=== PATIENT | male | born 1940 | race Caucasian/White ===

== ENCOUNTER 2022-05-07 10:41 | Inpatient (IN) | payer OTHER, BC ==
[2022-05-07] MEDS ORDERED: SODIUM CHLORIDE 0.9% 500 ML INFUS.BAG IV ONE ×2 (12:14→20:53)
[2022-05-07 12:28] LABS: VENOUS BASE EXCESS -1.3 mmol/L (-2-2); VENOUS O2 SATURATION 85.7 % (70-80); VENOUS PH 7.373 (7.310-7.410)
[2022-05-07 12:33] LABS: HEMOGLOBIN 12.1 GM/dL (11.7-16.9); MCH 31.8 pg (25.7-33.7); MCHC 33.7 g/dl (32.0-35.9); MEAN CELL VOLUME 94.6 fl (80-96); MEAN PLT VOLUME 9.5 fl (7.5-11.1); PLATELET COUNT 128 10^3/uL (134-434); RDW 14.4 % (11.9-15.9); WHITE BLOOD COUNT 8.2 K/mm3 (4.0-10.0)
[2022-05-07 12:40] LABS: INR 1.12 (0.83-1.09); PROTHROMBIN TIME (PATIENT) 12.9 SEC (9.7-13.0)
[2022-05-07 12:43] LABS: ACTIVATED PTT 29.3 SECONDS (25.2-36.5)
[2022-05-07 12:54] LABS: BLOOD UREA NITROGEN 52.6 mg/dL (7-18); CALCIUM 8.6 mg/dL (8.5-10.1)
[2022-05-07 12:59] LABS: BILIRUBIN,TOTAL 6.3 mg/dL (0.2-1); TOT PROT 5.9 g/dl (6.4-8.2)
[2022-05-07 14:53] LABS: EPI CELLS 21 /uL (0-25.1); HYALINE CASTS 3 /uL (0-3.1); PH,URINE 5.5 (5.0-8.0); URINE APPEARANCE CLOUDY; URINE BACTERIA 1 /uL (0-1359); URINE BILIRUBIN 2+ (NEGATIVE); URINE COLOR DK YELLOW; URINE GLUCOSE (UA) NEGATIVE (NEGATIVE); URINE KETONE NEGATIVE (NEGATIVE); URINE LEUK ESTERASE NEGATIVE (NEGATIVE); URINE NITRITE NEGATIVE (NEGATIVE); URINE PROTEIN 3+ (NEGATIVE); URINE WBC 54 /uL (0-25.8)
[2022-05-07 14:57] LABS: YEAST NEGATIVE (NEGATIVE)
[2022-05-07 15:04] LABS: ANISOCYTOSIS 0; MACROCYTOSIS 0
[2022-05-07] MEDS ORDERED: PIPERACILLIN/TAZOB 4.5 GM 4.5 GM in DEXTROSE 5%-WATER 100 ML IVPB ONE (19:15)
[2022-05-07] MEDS ORDERED: PHYTONADIONE 10 MG/1 ML AMP IVPB ONE (19:52)
[2022-05-07] MEDS ORDERED: PIPERACILLIN/TAZOB 4.5 GM 4.5 GM/100 ML BAG IVPB ONE (21:00)
[2022-05-07] MEDS ORDERED: PHYTONADIONE 10 MG/1 ML AMP ONE (21:00)
[2022-05-07] MEDS ORDERED: LACTATED RINGERS SOLUTION 1,000 ML/1,000 ML INFUS.BAG IV SCH ×2 (22:30→22:40)
[2022-05-07] MEDS ORDERED: LACTATED RINGERS SOLUTION 1000 ML INFUS.BAG IV ONE ×2 (22:49→23:00)
[2022-05-07] MEDS ORDERED: ACETAMINOPHEN INJECTION 100 ML IVPB ONE (23:14)
[2022-05-07 23:19] LABS: BILIRUBIN,DIRECT 4.1 mg/dL (0.0-0.2)
[2022-05-07] MEDS ORDERED: ACETAMINOPHEN 1000 MG/100 ML BAG IVPB PRN (23:23)
[2022-05-08] MEDS ORDERED: PIPERACILLIN/TAZOB 2.25 GM 2.25 GM/50 ML BAG IVPB ONE (02:47)
[2022-05-08] MEDS ORDERED: PIPERACILLIN/TAZOB 2.25 GM 2.25 GM in DEXTROSE 5%-WATER - 50 ML IVPB SCH (03:00)
[2022-05-08] MEDS ORDERED: SODIUM CHLORIDE 1,000 ML IV SCH ×2 (03:15→04:59)
[2022-05-08 03:29] LABS: ARTERIAL BLD GAS O2 SATURATION 97.4 % (95-98); ARTERIAL BLOOD GAS BASE EXCESS -4.4 mmol/L (-2-2); ARTERIAL BLOOD GAS pH 7.332 (7.350-7.450)
[2022-05-08 03:32] LABS: ALLENS TEST POSITIVE; VENT MODE ST; VENT RATE 2
[2022-05-08 03:38] LABS: EPI CELLS >36 /uL (0-25.1); HYALINE CASTS 9 /uL (0-3.1); PH,URINE 5.5 (5.0-8.0); URINE APPEARANCE CLOUDY; URINE BACTERIA 14 /uL (0-1359); URINE BILIRUBIN 2+ (NEGATIVE); URINE COLOR DK YELLOW; URINE GLUCOSE (UA) NEGATIVE (NEGATIVE); URINE KETONE NEGATIVE (NEGATIVE); URINE LEUK ESTERASE NEGATIVE (NEGATIVE); URINE NITRITE NEGATIVE (NEGATIVE); URINE PROTEIN 2+ (NEGATIVE); URINE RBC 283 /uL (0-23.9)
[2022-05-08] MEDS ORDERED: ACETAMINOPHEN 1000 MG/100 ML BAG IVPB PRN (04:59)
[2022-05-08] MEDS: NOREPINEPHRINE BITARTRATE/D5W 8 MG/250 ML BAG IVPB SCH (06:49)
[2022-05-08] MEDS: INSULIN SLIDING SCALE (NOVOLOG) 1 VIAL SQ SCH ×4 (06:49→21:57)
[2022-05-08] MEDS ORDERED: INSULIN SLIDING SCALE (NOVOLOG) 1 VIAL SQ SCH (07:00)
[2022-05-08] MEDS ORDERED: LEVOTHYROXINE NA 25 MCG TABLET (FP) PO SCH ×2 (07:00)
[2022-05-08 07:21] LABS: URINE WBC 100.1 /uL (0-25.8)
[2022-05-08 07:35] LABS: BASO % 0.1 % (0-2.0); EOS % 0.1 % (0-4.5); HEMATOCRIT 36.4 % (35.4-49); LYMPH % 5.8 % (8-40); MCH 31.4 pg (25.7-33.7); MEAN CELL VOLUME 95.1 fl (80-96); MEAN PLT VOLUME 8.9 fl (7.5-11.1); MONO % 10.3 % (3.8-10.2); NEUT % 83.7 % (42.8-82.8); PLATELET COUNT 97 10^3/uL (134-434); RBC 3.83 M/mm3 (4.00-5.60); RDW 15.2 % (11.9-15.9); WHITE BLOOD COUNT 8.2 K/mm3 (4.0-10.0)
[2022-05-08 07:44] LABS: INR 1.03 (0.83-1.09); PROTHROMBIN TIME (PATIENT) 11.8 SEC (9.7-13.0)
[2022-05-08 07:47] LABS: ACTIVATED PTT 29.7 SECONDS (25.2-36.5)
[2022-05-08 07:53] LABS: MAGNESIUM 1.3 mg/dL (1.8-2.4)
[2022-05-08 07:54] LABS: CALCIUM 7.7 mg/dL (8.5-10.1)
[2022-05-08 07:55] LABS: ALBUMIN 2.6 g/dl (3.4-5.0)
[2022-05-08 07:56] LABS: CREATININE 3.3 mg/dL (0.55-1.3)
[2022-05-08 07:57] LABS: BILIRUBIN,DIRECT 5.7 mg/dL (0.0-0.2)
[2022-05-08 07:58] LABS: PHOSPHOROUS 3.9 mg/dL (2.5-4.9); TOT PROT 5.4 g/dl (6.4-8.2)
[2022-05-08 08:00] LABS: BILIRUBIN,TOTAL 6.8 mg/dL (0.2-1)
[2022-05-08] MEDS ORDERED: TAMSULOSIN HCL 0.4 MG CAP PO SCH (08:30)
[2022-05-08] MEDS ORDERED: MAGNESIUM SULF 50% (8.12 MEQ/2 ML-1 GM VIAL) IVPB ONE (09:00)
[2022-05-08] MEDS: PIPERACILLIN/TAZOB 2.25 GM 2.25 GM in DEXTROSE 5%-WATER - 50 ML IVPB SCH ×5 (09:00→21:36)
[2022-05-08] MEDS ORDERED: LACTATED RINGERS SOLUTION 1000 ML INFUS.BAG IV ONE ×3 (09:00→16:52)
[2022-05-08] MEDS: LEVOTHYROXINE SODIUM 100 MCG 5 ML VIAL IVPUSH SCH (10:58)
[2022-05-08] MEDS: MUPIROCIN 2% TOPICAL OINTMENT FOR DECOLONIZATION NS SCH ×2 (10:58→21:57)
[2022-05-08] MEDS ORDERED: LIDOCAINE HCL 2% 100 MG/5 ML DISP.SYRIN ONE (11:32)
[2022-05-08] MEDS ORDERED: VASOPRESSIN 20 UNITS/ML VIAL IV ONE ×3 (11:34→18:09)
[2022-05-08] MEDS ORDERED: CALCIUM CHLORIDE 1 GM/10 ML *DISP.SYRIN ONE (12:04)
[2022-05-08] MEDS ORDERED: LACTATED RINGERS SOLUTION 1,000 ML/1,000 ML INFUS.BAG IV SCH (14:30)
[2022-05-08] MEDS: DEXTROSE 5%-LACTATED RINGERS 1,000 ML IV SCH ×2 (14:49→21:36)
[2022-05-08] MEDS: DEXMEDETOMIDINE PREMIX 400 MCG/100 ML BAG IVPB SCH (14:57)
[2022-05-08 16:27] LABS: ARTERIAL BLD GAS O2 SATURATION 93.5 % (95-98); ARTERIAL BLOOD GAS BASE EXCESS -9.7 mmol/L (-2-2); ARTERIAL BLOOD GAS PO2 89.1 mmHg (80-100)
[2022-05-08 16:29] LABS: VENT MODE V-AC; VENT RATE 12
[2022-05-08 16:30] LABS: ARTERIAL BLOOD GAS pH 7.122 (7.350-7.450)
[2022-05-08] MEDS ORDERED: FENTANYL CITRATE/PF 50 MCG/ML VIAL IVPUSH ONE ×2 (17:00→19:32)
[2022-05-08 17:37] LABS: BASO % 0.1 % (0-2.0); EOS % 0.4 % (0-4.5); HEMATOCRIT 34.6 % (35.4-49); HEMOGLOBIN 11.3 GM/dL (11.7-16.9); LYMPH % 3.5 % (8-40); MCH 31.5 pg (25.7-33.7); MCHC 32.6 g/dl (32.0-35.9); MEAN CELL VOLUME 96.4 fl (80-96); MEAN PLT VOLUME 9.7 fl (7.5-11.1); MONO % 7.8 % (3.8-10.2); NEUT % 88.2 % (42.8-82.8); PLATELET COUNT 95 10^3/uL (134-434); RBC 3.59 M/mm3 (4.00-5.60); RDW 14.9 % (11.9-15.9)
[2022-05-08 17:53] LABS: INR 0.96 (0.83-1.09)
[2022-05-08 17:56] LABS: ACTIVATED PTT 24.4 SECONDS (25.2-36.5)
[2022-05-08 18:02] LABS: CALCIUM 8.3 mg/dL (8.5-10.1)
[2022-05-08 18:03] LABS: BLOOD UREA NITROGEN 68.2 mg/dL (7-18)
[2022-05-08 18:06] LABS: CREATININE 3.5 mg/dL (0.55-1.3)
[2022-05-08 18:07] LABS: TOT PROT 5.1 g/dl (6.4-8.2)
[2022-05-08 18:09] LABS: BILIRUBIN,TOTAL 5.6 mg/dL (0.2-1)
[2022-05-08] MEDS ORDERED: NOREPINEPHRINE BITARTRATE 4 MG/4 ML ML IV ONE (18:09)
[2022-05-08 18:10] LABS: ALBUMIN 2.3 g/dl (3.4-5.0)
[2022-05-08] MEDS: VASOPRESSIN 40 UNITS/100 ML BAG IV SCH (18:30)
[2022-05-08 18:38] LABS: ARTERIAL BLD GAS O2 SATURATION 95.8 % (95-98); ARTERIAL BLOOD GAS BASE EXCESS -8.5 mmol/L (-2-2); ARTERIAL BLOOD GAS PO2 90.9 mmHg (80-100); ARTERIAL BLOOD GAS pH 7.259 (7.350-7.450)
[2022-05-08 18:39] LABS: VENT MODE V-AC
[2022-05-08 18:40] LABS: VENT RATE 16
[2022-05-08] MEDS ORDERED: MIDAZOLAM HCL 2 MG/2 ML SINGLE DOSE VIAL IVPUSH ONE (19:31)
[2022-05-08] MEDS: CHLORHEXIDINE GLUCONATE 4% CLEANSER FOR DECOLONIZATION TP SCH (21:57)
[2022-05-09] MEDS: PIPERACILLIN/TAZOB 2.25 GM 2.25 GM in DEXTROSE 5%-WATER - 50 ML IVPB SCH ×4 (03:27→21:36)
[2022-05-09] MEDS: INSULIN SLIDING SCALE (NOVOLOG) 1 VIAL SQ SCH ×4 (06:24→21:37)
[2022-05-09] MEDS: LEVOTHYROXINE SODIUM 100 MCG 5 ML VIAL IVPUSH SCH (06:35)
[2022-05-09 08:17] LABS: EOS % 0.4 % (0-4.5); HEMATOCRIT 34.9 % (35.4-49); HEMOGLOBIN 11.7 GM/dL (11.7-16.9); LYMPH % 5.3 % (8-40); MCH 31.7 pg (25.7-33.7); MCHC 33.5 g/dl (32.0-35.9); MEAN CELL VOLUME 94.6 fl (80-96); MEAN PLT VOLUME 9.7 fl (7.5-11.1); MONO % 8.3 % (3.8-10.2); PLATELET COUNT 89 10^3/uL (134-434); RBC 3.69 M/mm3 (4.00-5.60); RDW 14.8 % (11.9-15.9); WHITE BLOOD COUNT 5.9 K/mm3 (4.0-10.0)
[2022-05-09 08:18] LABS: CALCIUM 8.2 mg/dL (8.5-10.1)
[2022-05-09 08:19] LABS: ALBUMIN 2.2 g/dl (3.4-5.0); BLOOD UREA NITROGEN 73.3 mg/dL (7-18)
[2022-05-09 08:21] LABS: BILIRUBIN,DIRECT 3.2 mg/dL (0.0-0.2); CREATININE 3.4 mg/dL (0.55-1.3)
[2022-05-09 08:22] LABS: PHOSPHOROUS 4.4 mg/dL (2.5-4.9)
[2022-05-09 08:23] LABS: BILIRUBIN,TOTAL 3.8 mg/dL (0.2-1); TOT PROT 5.2 g/dl (6.4-8.2)
[2022-05-09] MEDS: PANTOPRAZOLE SODIUM 40 MG VIAL IVPUSH SCH (09:31)
[2022-05-09] MEDS: MUPIROCIN 2% TOPICAL OINTMENT FOR DECOLONIZATION NS SCH ×2 (09:31→21:37)
[2022-05-09] MEDS: DEXTROSE 5%-LACTATED RINGERS 1,000 ML IV SCH ×2 (18:58→23:14)
[2022-05-09] MEDS: VASOPRESSIN 40 UNITS/100 ML BAG IV SCH (18:58)
[2022-05-09] MEDS: DEXMEDETOMIDINE PREMIX 400 MCG/100 ML BAG IVPB SCH (21:36)
[2022-05-09] MEDS: NOREPINEPHRINE BITARTRATE/D5W 8 MG/250 ML BAG IVPB SCH (21:36)
[2022-05-09] MEDS: CHLORHEXIDINE GLUCONATE 4% CLEANSER FOR DECOLONIZATION TP SCH (21:37)
[2022-05-10] MEDS: PIPERACILLIN/TAZOB 2.25 GM 2.25 GM in DEXTROSE 5%-WATER - 50 ML IVPB SCH ×4 (02:03→21:54)
[2022-05-10] MEDS: LEVOTHYROXINE SODIUM 100 MCG 5 ML VIAL IVPUSH SCH (05:59)
[2022-05-10] MEDS: INSULIN SLIDING SCALE (NOVOLOG) 1 VIAL SQ SCH ×4 (06:00→21:59)
[2022-05-10 06:09] LABS: ARTERIAL BLD GAS O2 SATURATION 96.1 % (95-98); ARTERIAL BLOOD GAS BASE EXCESS -3.6 mmol/L (-2-2); ARTERIAL BLOOD GAS PO2 87.1 mmHg (80-100); ARTERIAL BLOOD GAS pH 7.341 (7.350-7.450)
[2022-05-10 06:12] LABS: ALLENS TEST POSITIVE
[2022-05-10 08:06] LABS: BASO % 0.2 % (0-2.0); EOS % 0.7 % (0-4.5); HEMATOCRIT 36.5 % (35.4-49); HEMOGLOBIN 12.1 GM/dL (11.7-16.9); LYMPH % 6.8 % (8-40); MCH 31.5 pg (25.7-33.7); MCHC 33.1 g/dl (32.0-35.9); MEAN CELL VOLUME 95.3 fl (80-96); MEAN PLT VOLUME 9.6 fl (7.5-11.1); NEUT % 80.3 % (42.8-82.8); PLATELET COUNT 101 10^3/uL (134-434); RBC 3.83 M/mm3 (4.00-5.60); RDW 14.9 % (11.9-15.9); WHITE BLOOD COUNT 8.1 K/mm3 (4.0-10.0)
[2022-05-10 08:20] LABS: INR 0.97 (0.83-1.09); PROTHROMBIN TIME (PATIENT) 11.1 SEC (9.7-13.0)
[2022-05-10 08:23] LABS: ACTIVATED PTT 30.9 SECONDS (25.2-36.5)
[2022-05-10 08:31] LABS: ALBUMIN 2.1 g/dl (3.4-5.0); CREATININE 3.4 mg/dL (0.55-1.3)
[2022-05-10 08:33] LABS: BILIRUBIN,TOTAL 2.2 mg/dL (0.2-1)
[2022-05-10 08:34] LABS: BILIRUBIN,DIRECT 1.8 mg/dL (0.0-0.2)
[2022-05-10 08:36] LABS: MAGNESIUM 1.9 mg/dL (1.8-2.4)
[2022-05-10 08:39] LABS: PHOSPHOROUS 3.9 mg/dL (2.5-4.9)
[2022-05-10] MEDS: MUPIROCIN 2% TOPICAL OINTMENT FOR DECOLONIZATION NS SCH ×2 (09:10→21:55)
[2022-05-10] MEDS: PANTOPRAZOLE SODIUM 40 MG VIAL IVPUSH SCH (09:11)
[2022-05-10] MEDS: POLYETHYLENE GLYCOL (HEALTHYLAX) 3350 17 GM PACKET PO SCH ×2 (12:14→21:55)
[2022-05-10] MEDS: URSODIOL 300 MG CAPSULE PO SCH ×2 (12:14→21:55)
[2022-05-10] MEDS: DEXTROSE 5%-LACTATED RINGERS 1,000 ML IV SCH (15:05)
[2022-05-10] MEDS: NOREPINEPHRINE BITARTRATE/D5W 8 MG/250 ML BAG IVPB SCH (15:05)
[2022-05-10] MEDS: DEXMEDETOMIDINE PREMIX 400 MCG/100 ML BAG IVPB SCH (15:06)
[2022-05-10] MEDS: LACTATED RINGERS SOLUTION 1,000 ML/1,000 ML INFUS.BAG IV SCH (18:26)
[2022-05-10] MEDS: VASOPRESSIN 40 UNITS/100 ML BAG IV SCH (18:27)
[2022-05-10] MEDS: CHLORHEXIDINE GLUCONATE 4% CLEANSER FOR DECOLONIZATION TP SCH (21:56)
[2022-05-11] MEDS: PIPERACILLIN/TAZOB 2.25 GM 2.25 GM in DEXTROSE 5%-WATER - 50 ML IVPB SCH ×4 (02:24→22:04)
[2022-05-11] MEDS: LACTATED RINGERS SOLUTION 1,000 ML/1,000 ML INFUS.BAG IV SCH (05:49)
[2022-05-11] MEDS: INSULIN SLIDING SCALE (NOVOLOG) 1 VIAL SQ SCH ×4 (06:15→22:47)
[2022-05-11] MEDS: LEVOTHYROXINE SODIUM 100 MCG 5 ML VIAL IVPUSH SCH (06:46)
[2022-05-11] MEDS: NOREPINEPHRINE BITARTRATE/D5W 8 MG/250 ML BAG IVPB SCH (06:47)
[2022-05-11 08:06] LABS: INR 1.03 (0.83-1.09); PROTHROMBIN TIME (PATIENT) 11.8 SEC (9.7-13.0)
[2022-05-11 08:08] LABS: ACTIVATED PTT 32.7 SECONDS (25.2-36.5)
[2022-05-11 08:11] LABS: BASO % 0.2 % (0-2.0); EOS % 1.6 % (0-4.5); HEMATOCRIT 37.8 % (35.4-49); HEMOGLOBIN 12.7 GM/dL (11.7-16.9); LYMPH % 9.7 % (8-40); MCHC 33.5 g/dl (32.0-35.9); MEAN CELL VOLUME 95.6 fl (80-96); MEAN PLT VOLUME 9.2 fl (7.5-11.1); MONO % 10.5 % (3.8-10.2); PLATELET COUNT 106 10^3/uL (134-434); RBC 3.96 M/mm3 (4.00-5.60); RDW 15.2 % (11.9-15.9); WHITE BLOOD COUNT 6.9 K/mm3 (4.0-10.0)
[2022-05-11 08:28] LABS: CREATININE 2.7 mg/dL (0.55-1.3)
[2022-05-11 08:29] LABS: BLOOD UREA NITROGEN 47.5 mg/dL (7-18)
[2022-05-11 08:30] LABS: BILIRUBIN,TOTAL 1.9 mg/dL (0.2-1); CALCIUM 8.5 mg/dL (8.5-10.1); MAGNESIUM 1.8 mg/dL (1.8-2.4); TOT PROT 5.1 g/dl (6.4-8.2)
[2022-05-11 08:31] LABS: BILIRUBIN,DIRECT 1.3 mg/dL (0.0-0.2)
[2022-05-11 08:34] LABS: PHOSPHOROUS 3.6 mg/dL (2.5-4.9)
[2022-05-11] MEDS: URSODIOL 300 MG CAPSULE PO SCH ×2 (09:44→22:33)
[2022-05-11] MEDS: MUPIROCIN 2% TOPICAL OINTMENT FOR DECOLONIZATION NS SCH (09:45)
[2022-05-11] MEDS: PANTOPRAZOLE SODIUM 40 MG VIAL IVPUSH SCH (09:45)
[2022-05-11] MEDS: POLYETHYLENE GLYCOL (HEALTHYLAX) 3350 17 GM PACKET PO SCH ×2 (09:45→22:18)
[2022-05-11] MEDS ORDERED: PIPERACILLIN/TAZOBACTAM 2.25 GM VIAL IVPB ONE (20:47)
[2022-05-12] MEDS: PIPERACILLIN/TAZOB 2.25 GM 2.25 GM in DEXTROSE 5%-WATER - 50 ML IVPB SCH ×4 (04:23→21:57)
[2022-05-12] MEDS: LEVOTHYROXINE NA 25 MCG TABLET (FP) PO SCH (06:50)
[2022-05-12] MEDS ORDERED: LEVOTHYROXINE NA 25 MCG TABLET (FP) PO SCH (07:00)
[2022-05-12] MEDS: INSULIN SLIDING SCALE (NOVOLOG) 1 VIAL SQ SCH ×4 (07:34→22:21)
[2022-05-12] MEDS: PANTOPRAZOLE 40 MG TABLET PO SCH (09:15)
[2022-05-12] MEDS: URSODIOL 300 MG CAPSULE PO SCH ×2 (09:15→21:58)
[2022-05-12] MEDS: POLYETHYLENE GLYCOL (HEALTHYLAX) 3350 17 GM PACKET PO SCH ×2 (09:16→21:59)
[2022-05-12 09:57] LABS: BASO % 0.4 % (0-2.0); EOS % 1.8 % (0-4.5); HEMOGLOBIN 12.6 GM/dL (11.7-16.9); LYMPH % 10.4 % (8-40); MCH 31.1 pg (25.7-33.7); MCHC 32.4 g/dl (32.0-35.9); MEAN CELL VOLUME 96.1 fl (80-96); MEAN PLT VOLUME 9.1 fl (7.5-11.1); MONO % 8.5 % (3.8-10.2); NEUT % 78.9 % (42.8-82.8); PLATELET COUNT 154 10^3/uL (134-434); RBC 4.06 M/mm3 (4.00-5.60); RDW 15.6 % (11.9-15.9); WHITE BLOOD COUNT 8.1 K/mm3 (4.0-10.0)
[2022-05-12 10:16] LABS: ALBUMIN 2.3 g/dl (3.4-5.0)
[2022-05-12 10:20] LABS: BILIRUBIN,DIRECT 1.1 mg/dL (0.0-0.2); CALCIUM 9.2 mg/dL (8.5-10.1)
[2022-05-12 10:21] LABS: BLOOD UREA NITROGEN 38.6 mg/dL (7-18); MAGNESIUM 1.6 mg/dL (1.8-2.4)
[2022-05-12 10:22] LABS: BILIRUBIN,TOTAL 2.1 mg/dL (0.2-1); TOT PROT 5.6 g/dl (6.4-8.2)
[2022-05-12 10:24] LABS: PHOSPHOROUS 2.3 mg/dL (2.5-4.9)
[2022-05-12 10:25] LABS: CREATININE 1.9 mg/dL (0.55-1.3)
[2022-05-12] MEDS ORDERED: SODIUM CHLORIDE 0.45% 1,000 ML IV SCH (14:45)
[2022-05-13] MEDS: LEVOTHYROXINE NA 25 MCG TABLET (FP) PO SCH (06:08)
[2022-05-13] MEDS: INSULIN SLIDING SCALE (NOVOLOG) 1 VIAL SQ SCH ×4 (06:18→21:36)
[2022-05-13] MEDS: PIPERACILLIN/TAZOB 2.25 GM 2.25 GM in DEXTROSE 5%-WATER - 50 ML IVPB SCH ×4 (06:20→21:35)
[2022-05-13 08:16] LABS: ALBUMIN 2.7 g/dl (3.4-5.0); BLOOD UREA NITROGEN 29.8 mg/dL (7-18); CALCIUM 9.2 mg/dL (8.5-10.1); MAGNESIUM 1.3 mg/dL (1.8-2.4)
[2022-05-13 08:18] LABS: PHOSPHOROUS 1.2 mg/dL (2.5-4.9)
[2022-05-13 08:19] LABS: CREATININE 1.7 mg/dL (0.55-1.3)
[2022-05-13 08:20] LABS: BILIRUBIN,TOTAL 2.4 mg/dL (0.2-1); TOT PROT 6.3 g/dl (6.4-8.2)
[2022-05-13 08:35] LABS: EOS % 3.3 % (0-4.5); HEMOGLOBIN 12.9 GM/dL (11.7-16.9); LYMPH % 11.4 % (8-40); MCH 31.5 pg (25.7-33.7); MCHC 33.1 g/dl (32.0-35.9); MEAN CELL VOLUME 95.4 fl (80-96); MEAN PLT VOLUME 8.8 fl (7.5-11.1); MONO % 7.3 % (3.8-10.2); PLATELET COUNT 179 10^3/uL (134-434); RBC 4.08 M/mm3 (4.00-5.60); RDW 15.3 % (11.9-15.9); WHITE BLOOD COUNT 9.7 K/mm3 (4.0-10.0)
[2022-05-13] MEDS: PANTOPRAZOLE 40 MG TABLET PO SCH (09:43)
[2022-05-13] MEDS: URSODIOL 300 MG CAPSULE PO SCH ×2 (09:43→21:35)
[2022-05-13] MEDS: POLYETHYLENE GLYCOL (HEALTHYLAX) 3350 17 GM PACKET PO SCH ×3 (09:43→21:36)
[2022-05-13 09:55] LABS: N-TERMINAL BNP 4802.8 pg/ml (5-450)
[2022-05-13] MEDS: TAMSULOSIN HCL 0.4 MG CAP PO SCH (11:25)
[2022-05-13] MEDS ORDERED: MAGNESIUM SULFATE IN WATER 2 GM/50 ML IVPB IVPB ONE (11:30)
[2022-05-13] MEDS ORDERED: POTASSIUM CHLORIDE ORAL LIQUID 20 MEQ/15 ML PO ONE (11:30)
[2022-05-13] MEDS ORDERED: NAPH,MB-DB/K PH,MBDB POWDER PACKET PO ONE (11:31)
[2022-05-13] MEDS ORDERED: FUROSEMIDE 40 MG/4 ML INJECTABLE VIAL IVPUSH ONE (12:30)
[2022-05-14] MEDS: PIPERACILLIN/TAZOB 2.25 GM 2.25 GM in DEXTROSE 5%-WATER - 50 ML IVPB SCH ×4 (02:30→21:10)
[2022-05-14] MEDS: INSULIN SLIDING SCALE (NOVOLOG) 1 VIAL SQ SCH ×4 (06:30→21:16)
[2022-05-14] MEDS: LEVOTHYROXINE NA 25 MCG TABLET (FP) PO SCH (06:30)
[2022-05-14 08:16] LABS: BASO % 0.6 % (0-2.0); EOS % 3.1 % (0-4.5); HEMATOCRIT 38.6 % (35.4-49); HEMOGLOBIN 12.7 GM/dL (11.7-16.9); LYMPH % 13.2 % (8-40); MCH 31.5 pg (25.7-33.7); MCHC 32.8 g/dl (32.0-35.9); MEAN PLT VOLUME 8.8 fl (7.5-11.1); MONO % 7.6 % (3.8-10.2); NEUT % 75.5 % (42.8-82.8); PLATELET COUNT 203 10^3/uL (134-434); RBC 4.02 M/mm3 (4.00-5.60); RDW 15.2 % (11.9-15.9); WHITE BLOOD COUNT 9.5 K/mm3 (4.0-10.0)
[2022-05-14 08:39] LABS: ALBUMIN 2.9 g/dl (3.4-5.0); BLOOD UREA NITROGEN 23.2 mg/dL (7-18); CREATININE 1.5 mg/dL (0.55-1.3); PHOSPHOROUS 2.2 mg/dL (2.5-4.9)
[2022-05-14 08:40] LABS: BILIRUBIN,TOTAL 2.5 mg/dL (0.2-1)
[2022-05-14 08:41] LABS: TOT PROT 6.5 g/dl (6.4-8.2)
[2022-05-14 08:42] LABS: MAGNESIUM 1.4 mg/dL (1.8-2.4)
[2022-05-14] MEDS: TAMSULOSIN HCL 0.4 MG CAP PO SCH (09:16)
[2022-05-14] MEDS: PANTOPRAZOLE 40 MG TABLET PO SCH (09:17)
[2022-05-14] MEDS: URSODIOL 300 MG CAPSULE PO SCH ×2 (09:17→21:10)
[2022-05-14] MEDS: POLYETHYLENE GLYCOL (HEALTHYLAX) 3350 17 GM PACKET PO SCH ×2 (09:19→21:10)
[2022-05-14] MEDS: ENOXAPARIN NA (PORCINE) 40 MG/0.4 ML DISP.SYRIN SQ SCH (09:43)
[2022-05-14] MEDS ORDERED: POTASSIUM CHLORIDE ORAL LIQUID 20 MEQ/15 ML PO ONE (12:15)
[2022-05-14] MEDS ORDERED: MAGNESIUM SULF 50% (8.12 MEQ/2 ML-1 GM VIAL) IVPB ONE (12:15)
[2022-05-14] MEDS: NAPH,MB-DB/K PH,MBDB POWDER PACKET PO SCH ×2 (12:31→21:10)
[2022-05-14] MEDS ORDERED: PIPERACILLIN/TAZOBACTAM 2.25 GM VIAL IVPB ONE (14:28)
[2022-05-15] MEDS: PIPERACILLIN/TAZOB 2.25 GM 2.25 GM in DEXTROSE 5%-WATER - 50 ML IVPB SCH ×3 (03:00→15:27)
[2022-05-15] MEDS: LEVOTHYROXINE NA 25 MCG TABLET (FP) PO SCH (06:25)
[2022-05-15] MEDS: INSULIN SLIDING SCALE (NOVOLOG) 1 VIAL SQ SCH ×4 (06:25→22:30)
[2022-05-15 07:42] LABS: BASO % 0.8 % (0-2.0); EOS % 3.1 % (0-4.5); HEMOGLOBIN 11.4 GM/dL (11.7-16.9); LYMPH % 14.2 % (8-40); MCH 31.7 pg (25.7-33.7); MCHC 33.4 g/dl (32.0-35.9); MEAN PLT VOLUME 8.4 fl (7.5-11.1); NEUT % 73.9 % (42.8-82.8); PLATELET COUNT 207 10^3/uL (134-434); RBC 3.58 M/mm3 (4.00-5.60); RDW 14.7 % (11.9-15.9); WHITE BLOOD COUNT 8.3 K/mm3 (4.0-10.0)
[2022-05-15 08:13] LABS: CALCIUM 8.6 mg/dL (8.5-10.1)
[2022-05-15 08:14] LABS: ALBUMIN 2.6 g/dl (3.4-5.0); BLOOD UREA NITROGEN 23.9 mg/dL (7-18); MAGNESIUM 1.6 mg/dL (1.8-2.4)
[2022-05-15 08:17] LABS: CREATININE 1.6 mg/dL (0.55-1.3)
[2022-05-15 08:19] LABS: BILIRUBIN,TOTAL 1.9 mg/dL (0.2-1); TOT PROT 5.8 g/dl (6.4-8.2)
[2022-05-15] MEDS: TAMSULOSIN HCL 0.4 MG CAP PO SCH (08:56)
[2022-05-15] MEDS: PANTOPRAZOLE 40 MG TABLET PO SCH (09:56)
[2022-05-15] MEDS: POLYETHYLENE GLYCOL (HEALTHYLAX) 3350 17 GM PACKET PO SCH ×2 (09:56→22:24)
[2022-05-15] MEDS: NAPH,MB-DB/K PH,MBDB POWDER PACKET PO SCH ×2 (09:56→22:24)
[2022-05-15] MEDS: ENOXAPARIN NA (PORCINE) 40 MG/0.4 ML DISP.SYRIN SQ SCH (09:56)
[2022-05-15] MEDS: URSODIOL 300 MG CAPSULE PO SCH ×2 (09:56→22:24)
[2022-05-15] MEDS ORDERED: MAGNESIUM OXIDE 400 MG TABLET (FP) PO ONE (13:56)
[2022-05-16] MEDS: LEVOTHYROXINE NA 25 MCG TABLET (FP) PO SCH ×2 (05:49→06:03)
[2022-05-16] MEDS: INSULIN SLIDING SCALE (NOVOLOG) 1 VIAL SQ SCH ×4 (06:03→22:27)
[2022-05-16 07:52] LABS: BASO % 0.7 % (0-2.0); EOS % 1.8 % (0-4.5); HEMATOCRIT 35.2 % (35.4-49); HEMOGLOBIN 11.5 GM/dL (11.7-16.9); LYMPH % 11.2 % (8-40); MCH 31.3 pg (25.7-33.7); MCHC 32.7 g/dl (32.0-35.9); MEAN CELL VOLUME 95.9 fl (80-96); MEAN PLT VOLUME 8.7 fl (7.5-11.1); MONO % 8.4 % (3.8-10.2); NEUT % 77.9 % (42.8-82.8); PLATELET COUNT 230 10^3/uL (134-434); RBC 3.67 M/mm3 (4.00-5.60); RDW 15.5 % (11.9-15.9)
[2022-05-16 08:36] LABS: ALBUMIN 2.9 g/dl (3.4-5.0); BLOOD UREA NITROGEN 21.3 mg/dL (7-18)
[2022-05-16 08:40] LABS: BILIRUBIN,TOTAL 1.7 mg/dL (0.2-1); CREATININE 1.4 mg/dL (0.55-1.3)
[2022-05-16 08:41] LABS: TOT PROT 6.2 g/dl (6.4-8.2)
[2022-05-16] MEDS: TAMSULOSIN HCL 0.4 MG CAP PO SCH (09:02)
[2022-05-16] MEDS: ENOXAPARIN NA (PORCINE) 40 MG/0.4 ML DISP.SYRIN SQ SCH (10:06)
[2022-05-16] MEDS: PANTOPRAZOLE 40 MG TABLET PO SCH (10:06)
[2022-05-16] MEDS: NAPH,MB-DB/K PH,MBDB POWDER PACKET PO SCH (10:06)
[2022-05-16] MEDS: POLYETHYLENE GLYCOL (HEALTHYLAX) 3350 17 GM PACKET PO SCH ×2 (10:07→22:23)
[2022-05-16] MEDS: URSODIOL 300 MG CAPSULE PO SCH ×2 (10:07→22:23)
[2022-05-16] MEDS ORDERED: BISACODYL 10 MG SUPP.RECT PR ONE (11:45)
[2022-05-16] MEDS: CARVEDILOL 3.125 MG TABLET (FP) PO SCH ×2 (11:56→22:23)
[2022-05-16] MEDS ORDERED: POTASSIUM CHLORIDE TABS 20 MEQ TABLET.ER (FP) PO ONE (12:00)
[2022-05-16] MEDS ORDERED: FUROSEMIDE 40 MG TABLET (FP) PO ONE (12:00)
[2022-05-16 13:16] VITALS: BMI 29.7
[2022-05-16] MEDS: DOCUSATE SODIUM 100 MG CAPSULE (FP) PO SCH ×2 (13:56→22:23)
[2022-05-17] MEDS: INSULIN SLIDING SCALE (NOVOLOG) 1 VIAL SQ SCH ×4 (06:08→21:27)
[2022-05-17] MEDS: LEVOTHYROXINE NA 25 MCG TABLET (FP) PO SCH (06:08)
[2022-05-17 08:06] LABS: ALBUMIN 2.7 g/dl (3.4-5.0); BLOOD UREA NITROGEN 24.4 mg/dL (7-18); MAGNESIUM 1.3 mg/dL (1.8-2.4)
[2022-05-17 08:09] LABS: CREATININE 1.6 mg/dL (0.55-1.3)
[2022-05-17 08:11] LABS: BILIRUBIN,TOTAL 1.6 mg/dL (0.2-1); TOT PROT 6.1 g/dl (6.4-8.2)
[2022-05-17] MEDS: TAMSULOSIN HCL 0.4 MG CAP PO SCH (09:26)
[2022-05-17] MEDS ORDERED: ASPIRIN 81 MG CHEWABLE TABLETS PO SCH (10:00)
[2022-05-17] MEDS: DOCUSATE SODIUM 100 MG CAPSULE (FP) PO SCH ×2 (10:17→21:25)
[2022-05-17] MEDS: POLYETHYLENE GLYCOL (HEALTHYLAX) 3350 17 GM PACKET PO SCH ×2 (10:17→21:25)
[2022-05-17] MEDS: PANTOPRAZOLE 40 MG TABLET PO SCH (10:17)
[2022-05-17] MEDS: CARVEDILOL 3.125 MG TABLET (FP) PO SCH ×2 (10:17→21:25)
[2022-05-17] MEDS: ENOXAPARIN NA (PORCINE) 40 MG/0.4 ML DISP.SYRIN SQ SCH (10:17)
[2022-05-17] MEDS: URSODIOL 300 MG CAPSULE PO SCH ×2 (10:17→21:25)
[2022-05-17] MEDS ORDERED: MAGNESIUM SULF 50% (8.12 MEQ/2 ML-1 GM VIAL) IVPB ONE ×2 (14:30→16:45)
[2022-05-18] MEDS: INSULIN SLIDING SCALE (NOVOLOG) 1 VIAL SQ SCH ×4 (06:27→21:28)
[2022-05-18] MEDS: LEVOTHYROXINE NA 25 MCG TABLET (FP) PO SCH (06:28)
[2022-05-18 08:15] LABS: HEMATOCRIT 34.2 % (35.4-49); HEMOGLOBIN 11.5 GM/dL (11.7-16.9); MCH 32.2 pg (25.7-33.7); MCHC 33.6 g/dl (32.0-35.9); MEAN CELL VOLUME 95.7 fl (80-96); MEAN PLT VOLUME 9.2 fl (7.5-11.1); PLATELET COUNT 272 10^3/uL (134-434); RBC 3.58 M/mm3 (4.00-5.60); RDW 14.8 % (11.9-15.9); WHITE BLOOD COUNT 13.1 K/mm3 (4.0-10.0)
[2022-05-18 08:20] LABS: BLOOD UREA NITROGEN 33.2 mg/dL (7-18); CALCIUM 9.1 mg/dL (8.5-10.1)
[2022-05-18 08:23] LABS: CREATININE 2.1 mg/dL (0.55-1.3)
[2022-05-18] MEDS: TAMSULOSIN HCL 0.4 MG CAP PO SCH (08:30)
[2022-05-18] MEDS: ENOXAPARIN NA (PORCINE) 40 MG/0.4 ML DISP.SYRIN SQ SCH (09:59)
[2022-05-18] MEDS: MAGNESIUM OXIDE 400 MG TABLET (FP) PO SCH (09:59)
[2022-05-18] MEDS: CARVEDILOL 3.125 MG TABLET (FP) PO SCH ×2 (10:00→21:28)
[2022-05-18] MEDS: POLYETHYLENE GLYCOL (HEALTHYLAX) 3350 17 GM PACKET PO SCH ×2 (10:00→21:28)
[2022-05-18] MEDS: PANTOPRAZOLE 40 MG TABLET PO SCH (10:00)
[2022-05-18] MEDS: DOCUSATE SODIUM 100 MG CAPSULE (FP) PO SCH ×2 (10:00→21:28)
[2022-05-18] MEDS: URSODIOL 300 MG CAPSULE PO SCH ×2 (10:01→21:28)
[2022-05-18 21:29] LABS: EPI CELLS 2 /uL (0-25.1); HYALINE CASTS 0 /uL (0-3.1); URINE APPEARANCE CLEAR; URINE BACTERIA 0 /uL (0-1359); URINE BILIRUBIN NEGATIVE (NEGATIVE); URINE COLOR YELLOW; URINE GLUCOSE (UA) NEGATIVE (NEGATIVE); URINE KETONE NEGATIVE (NEGATIVE); URINE LEUK ESTERASE NEGATIVE (NEGATIVE); URINE NITRITE NEGATIVE (NEGATIVE); URINE PROTEIN TRACE (NEGATIVE); URINE RBC 19 /uL (0-23.9); URINE UROBILINOGEN 0.2 mg/dL (0.2-1.0); URINE WBC 4 /uL (0-25.8)
[2022-05-19] MEDS: LEVOTHYROXINE NA 25 MCG TABLET (FP) PO SCH (06:27)
[2022-05-19] MEDS: INSULIN SLIDING SCALE (NOVOLOG) 1 VIAL SQ SCH ×4 (07:26→21:21)
[2022-05-19 07:41] LABS: HEMATOCRIT 28.9 % (35.4-49); HEMOGLOBIN 9.7 GM/dL (11.7-16.9); MCH 31.9 pg (25.7-33.7); MCHC 33.5 g/dl (32.0-35.9); MEAN CELL VOLUME 95.1 fl (80-96); MEAN PLT VOLUME 8.9 fl (7.5-11.1); PLATELET COUNT 283 10^3/uL (134-434); RBC 3.04 M/mm3 (4.00-5.60); RDW 14.7 % (11.9-15.9); WHITE BLOOD COUNT 13.1 K/mm3 (4.0-10.0)
[2022-05-19 08:21] LABS: CALCIUM 8.8 mg/dL (8.5-10.1)
[2022-05-19 08:26] LABS: CREATININE 1.6 mg/dL (0.55-1.3)
[2022-05-19] MEDS: ENOXAPARIN NA (PORCINE) 40 MG/0.4 ML DISP.SYRIN SQ SCH (09:44)
[2022-05-19] MEDS: TAMSULOSIN HCL 0.4 MG CAP PO SCH (09:44)
[2022-05-19] MEDS: CARVEDILOL 3.125 MG TABLET (FP) PO SCH ×2 (09:44→21:14)
[2022-05-19] MEDS: MAGNESIUM OXIDE 400 MG TABLET (FP) PO SCH (09:44)
[2022-05-19] MEDS: PANTOPRAZOLE 40 MG TABLET PO SCH (09:44)
[2022-05-19] MEDS: POLYETHYLENE GLYCOL (HEALTHYLAX) 3350 17 GM PACKET PO SCH ×2 (09:45→21:14)
[2022-05-19] MEDS: DOCUSATE SODIUM 100 MG CAPSULE (FP) PO SCH ×2 (09:45→21:14)
[2022-05-19] MEDS: URSODIOL 300 MG CAPSULE PO SCH ×2 (09:45→21:14)
[2022-05-19] MEDS ORDERED: POTASSIUM CHLORIDE TABS 20 MEQ TABLET.ER (FP) PO ONE (12:25)
[2022-05-19] MEDS ORDERED: FUROSEMIDE 40 MG TABLET (FP) PO ONE (12:25)
[2022-05-20] MEDS: LEVOTHYROXINE NA 25 MCG TABLET (FP) PO SCH (06:40)
[2022-05-20] MEDS: INSULIN SLIDING SCALE (NOVOLOG) 1 VIAL SQ SCH ×4 (06:40→21:36)
[2022-05-20 07:50] LABS: BASO % 0.8 % (0-2.0); EOS % 0.4 % (0-4.5); HEMATOCRIT 27.6 % (35.4-49); HEMOGLOBIN 9.2 GM/dL (11.7-16.9); LYMPH % 8.8 % (8-40); MCH 31.7 pg (25.7-33.7); MCHC 33.4 g/dl (32.0-35.9); MEAN PLT VOLUME 9.2 fl (7.5-11.1); MONO % 10.3 % (3.8-10.2); NEUT % 79.7 % (42.8-82.8); PLATELET COUNT 272 10^3/uL (134-434); RBC 2.91 M/mm3 (4.00-5.60); RDW 14.7 % (11.9-15.9); WHITE BLOOD COUNT 10.2 K/mm3 (4.0-10.0)
[2022-05-20] MEDS ORDERED: ACETAMINOPHEN 325 MG TABLET (FP) PO PRN (08:07)
[2022-05-20 08:15] LABS: CALCIUM 8.7 mg/dL (8.5-10.1)
[2022-05-20 08:16] LABS: BLOOD UREA NITROGEN 25.5 mg/dL (7-18)
[2022-05-20 08:19] LABS: CREATININE 1.2 mg/dL (0.55-1.3)
[2022-05-20] MEDS: TAMSULOSIN HCL 0.4 MG CAP PO SCH (08:27)
[2022-05-20] MEDS ORDERED: LISINOPRIL 10 MG TABLET PO SCH (10:00)
[2022-05-20] MEDS: CARVEDILOL 3.125 MG TABLET (FP) PO SCH ×2 (10:08→21:32)
[2022-05-20] MEDS: POLYETHYLENE GLYCOL (HEALTHYLAX) 3350 17 GM PACKET PO SCH ×3 (10:08→21:32)
[2022-05-20] MEDS: PANTOPRAZOLE 40 MG TABLET PO SCH (10:08)
[2022-05-20] MEDS: ENOXAPARIN NA (PORCINE) 40 MG/0.4 ML DISP.SYRIN SQ SCH (10:08)
[2022-05-20] MEDS: MAGNESIUM OXIDE 400 MG TABLET (FP) PO SCH (10:08)
[2022-05-20] MEDS: DOCUSATE SODIUM 100 MG CAPSULE (FP) PO SCH ×2 (10:08→21:31)
[2022-05-20] MEDS: URSODIOL 300 MG CAPSULE PO SCH ×2 (10:09→21:31)
[2022-05-20] MEDS: FINASTERIDE 5 MG TABLET (FP) PO SCH (11:48)
[2022-05-20] MEDS ORDERED: SODIUM CHLORIDE 500 ML IV STA (16:35)
[2022-05-21] MEDS: INSULIN SLIDING SCALE (NOVOLOG) 1 VIAL SQ SCH ×4 (06:27→21:22)
[2022-05-21] MEDS: LEVOTHYROXINE NA 25 MCG TABLET (FP) PO SCH (06:28)
[2022-05-21 07:46] LABS: HEMATOCRIT 29.4 % (35.4-49); HEMOGLOBIN 9.7 GM/dL (11.7-16.9); MCH 31.5 pg (25.7-33.7); MCHC 33.1 g/dl (32.0-35.9); MEAN CELL VOLUME 95.2 fl (80-96); PLATELET COUNT 298 10^3/uL (134-434); RBC 3.09 M/mm3 (4.00-5.60); RDW 14.6 % (11.9-15.9); WHITE BLOOD COUNT 12.8 K/mm3 (4.0-10.0)
[2022-05-21 08:04] LABS: CALCIUM 8.4 mg/dL (8.5-10.1)
[2022-05-21 08:05] LABS: BLOOD UREA NITROGEN 28.7 mg/dL (7-18)
[2022-05-21 08:08] LABS: CREATININE 1.3 mg/dL (0.55-1.3)
[2022-05-21 08:09] LABS: BILIRUBIN,TOTAL 1.1 mg/dL (0.2-1); TOT PROT 5.2 g/dl (6.4-8.2)
[2022-05-21 08:24] LABS: ALBUMIN 1.9 g/dl (3.4-5.0)
[2022-05-21] MEDS ORDERED: TAMSULOSIN HCL 0.4 MG CAP PO SCH (08:30)
[2022-05-21] MEDS: URSODIOL 300 MG CAPSULE PO SCH ×2 (09:47→21:13)
[2022-05-21] MEDS: POLYETHYLENE GLYCOL (HEALTHYLAX) 3350 17 GM PACKET PO SCH ×2 (09:48→21:15)
[2022-05-21] MEDS: PANTOPRAZOLE 40 MG TABLET PO SCH (09:48)
[2022-05-21] MEDS: FINASTERIDE 5 MG TABLET (FP) PO SCH (09:48)
[2022-05-21] MEDS: MAGNESIUM OXIDE 400 MG TABLET (FP) PO SCH (09:48)
[2022-05-21] MEDS: DOCUSATE SODIUM 100 MG CAPSULE (FP) PO SCH ×2 (09:48→21:14)
[2022-05-21] MEDS: CARVEDILOL 3.125 MG TABLET (FP) PO SCH ×2 (09:48→21:15)
[2022-05-22] MEDS: INSULIN SLIDING SCALE (NOVOLOG) 1 VIAL SQ SCH (06:46)
[2022-05-22] MEDS: LEVOTHYROXINE NA 25 MCG TABLET (FP) PO SCH (06:56)
[2022-05-22 07:00] VITALS: BP 151/82; PULSE 909; RESP 20; TEMP 97.4
== END 2022-05-22 06:50 | DRG 871 ==
LOC: JER 10:41 → JERBED 18:38 → JICU 05-08 05:16 → J4W 05-11 17:19
PROVIDERS: ADMIT Internal Medicine; ATTEND Internal Medicine
PROC: 0FC98ZZ Extirpation of Matter from Common Bile Duct, Via Natural or Artificial Opening Endoscopic (ICD-10-PCS; 2022-05-08)
PROC: 0F798DZ Dilation of Common Bile Duct with Intraluminal Device, Via Natural or Artificial Opening Endoscopic (ICD-10-PCS; 2022-05-08)
PROC: 0BH17EZ Insertion of Endotracheal Airway into Trachea, Via Natural or Artificial Opening (ICD-10-PCS; 2022-05-08)
PROC: 5A1935Z Respiratory Ventilation, Less than 24 Consecutive Hours (ICD-10-PCS; 2022-05-08)
PROC: 05H633Z Insertion of Infusion Device into Left Subclavian Vein, Percutaneous Approach (ICD-10-PCS; principal; 2022-05-08 10:30)
DX: A41.89 Other specified sepsis (principal); J80 Acute respiratory distress syndrome; R65.21 Severe sepsis with septic shock; K80.31 Calculus of bile duct with cholangitis, unspecified, with obstruction; I24.8 Other forms of acute ischemic heart disease; N17.9 Acute kidney failure, unspecified; E87.0 Hyperosmolality and hypernatremia; E11.9 Type 2 diabetes mellitus without complications; E03.9 Hypothyroidism, unspecified; N40.0 Benign prostatic hyperplasia without lower urinary tract symptoms; I08.3 Combined rheumatic disorders of mitral, aortic and tricuspid valves; I12.9 Hypertensive chronic kidney disease with stage 1 through stage 4 chronic kidney disease, or unspecified chronic kidney disease; E11.22 Type 2 diabetes mellitus with diabetic chronic kidney disease; N18.9 Chronic kidney disease, unspecified; R33.9 Retention of urine, unspecified
CPT/HCPCS: 0241U-QW; 36415; 36600; 71045-TC-FY; 71275-TC; 74174-TC; 76000-TC-FY; 76705-TC; 80048; 80053; 80076; 81003; 82150; 82248; 82550; 82553; 82803; 82962; 83605; 83690; 83735; 83880; 84100; 84443; 84484; 85025; 85027; 85610; 85730; 86140; 86850; 86900; 86901; 87040; 87086; 87186; 93005; 93010; 93306-TC; 93970-TC; 94002; 94660; 94761; 97116-GP; 99285-25; C9803-CS; J3490; U0003; U0005